=== PATIENT | male | born 1960 | race Caucasian/White ===

== ENCOUNTER 2025-02-11 06:45 | Day surgery (SDC) | payer OTHER, SELFPAY ==
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
--- NOTE | 2025-02-10 14:32 | SUR.PREOP ---
Confirm with officer Uriah, last eloquis taken was 02/05/25, pt to be NPO and to arrive at 0630.
[2025-02-10 14:33] VITALS: BMI 28.3
[2025-02-11 07:50] VITALS: BP 112/61; PULSE 64; RESP 16; TEMP 36.6; O2SAT 98; BMI 28.1
--- NOTE | 2025-02-11 08:30 | XR_ITS ---
EXAMINATION: Transrectal prostate sonography TECHNIQUE: Transrectal prostate sonography guidance for prostate biopsies by physician today Date and time: February 11, 2025, 0847 hours TECHNIQUE AND FINDINGS: Transrectal prostate sonographic images Prostate volume 34.58 cc IMPRESSION: Transrectal prostate sonographic images for prostate biopsies by physician today
[2025-02-11 09:05] VITALS: BP 66/41; PULSE 67; RESP 12; TEMP 36.3; O2SAT 100
--- NOTE | 2025-02-11 09:05 | SUR.PHASEII ---
0905: Pt. wakes to name then drifts back to sleep, pt. hypotensive MD Stanley made aware, no new orders given, remaining vitals stable, no dressing in place, no active bleed noted, report received from MD Stanley and [place] ARCHULETA.
[2025-02-11 09:10] VITALS: BP 79/42; PULSE 69; RESP 12; TEMP 36.2; O2SAT 100
[2025-02-11 09:15] VITALS: BP 74/45; PULSE 67; RESP 12; TEMP 36.3; O2SAT 100
[2025-02-11 09:20] VITALS: BP 99/58; PULSE 70; RESP 13; TEMP 36.3; O2SAT 100
[2025-02-11 09:35] VITALS: BP 107/64; PULSE 66; RESP 12; TEMP 36.3; O2SAT 100
--- NOTE | 2025-02-11 09:42 | SUR.PHASEII ---
0942: Pt. AAOx4, vitals stable, breathing unlabored, no complaint of pain or nausea, no dressing in place, pt. able to void hematuria, no visible clots noted, pt. tolerated sips of juice well, gave discharge instructions to the pt. and [place] officers, pt. verbalized understanding and had no further quesitons. Pt. left with all personal belongings.
--- NOTE | 2025-02-11 16:00 | ESOP_ITS ---
RE: HAILE MCKEON : 1960 DATE OF OPERATION: 02/11/2025 PREOPERATIVE DIAGNOSES: Prostatism, prostatic obstruction, elevated PSA of 6.7. Patient on hemodialysis for end stage renal failure. Patient is from substance abuse treatment facility assisted. POSTOPERATIVE DIAGNOSES: Prostatism, prostatic obstruction, elevated PSA of 6.7. Patient on hemodialysis for end stage renal failure. Patient is from substance abuse treatment facility assisted. PROCEDURES PERFORMED: Cystoscopy, urethral dilatation for urethral stricture, transrectal prostatic ultrasound with ultrasound guided prostatic needle biopsy. ANESTHESIA: Monitored anesthesia by Marshall Stanley MD INDICATION: Patient is 65-year-old gentleman from [facility] that [facility]. He was referred to me with a history of elevated PSA. He has a history of end stage renal disease and he is on hemodialysis for about 10 years. He is urinating a small amount. He is now scheduled to have cystoscopy and transrectal prostatic ultrasound with ultrasound guided prostatic needle biopsy. Clinical examination revealed on rectal exam he has a moderate size prostate without any hard nodules. DESCRIPTION OF PROCEDURE: After the patient was brought to the operating table under adequate monitored anesthesia by Dr. Stanley, he was placed in dorsal lithotomy position. Parts were prepped and draped in the usual fashion. Cystoscopy was then carried out which revealed adequate urethral meatus, normal-appearing urethra. There was a tight stricture in the bulbar urethra which was dilated. The prostatic urethra was then visualized which revealed moderate size prostate with some obstruction. Scope was then introduced into the bladder. Inspection of the bladder revealed residual urine to be 1 ounce, yellow and clear, and was sent for culture and sensitivity examination. There are no intravesical stones or tumors. Urethral orifices are found to be normal in position. There was some trabeculation of the urinary bladder with small bladder diverticuli. Scope was withdrawn. Urethra was dilated. Patient was then turned in left lateral position. Transrectal prostatic ultrasound was carried out. Biopsies were obtained from both lobes using ultrasound guidance. Prostatic volume was measured at 34.6 cubic centimeter. Patient tolerated the entire procedure well and left the room in good condition. Thank you very much for your kind referral. cc: [facility] DT: 09:24:12 TT: 15:59:00 Ref: [id number] - TID: [id number]
== END 2025-02-11 09:42 ==
PROVIDERS: Referring Provider Surgery; Visit Provider Surgery
PROC: (CPT 55700; principal; 2025-02-11 08:30)
PROC: 0TJB8ZZ Inspection of Bladder, Via Natural or Artificial Opening Endoscopic (ICD-10-PCS; CPT 52000; 2025-02-11 08:30)
DX: N40.1 Benign prostatic hyperplasia with lower urinary tract symptoms (principal); N13.8 Other obstructive and reflux uropathy; R35.1 Nocturia; Z99.2 Dependence on renal dialysis; I12.0 Hypertensive chronic kidney disease with stage 5 chronic kidney disease or end stage renal disease; N18.6 End stage renal disease; Z79.01 Long term (current) use of anticoagulants; N35.812 Other bulbous urethral stricture, male; N32.89 Other specified disorders of bladder
CPT/HCPCS: 52281; 55700; 76942; 87086; A4217; A4649; J0694; J2250; J2704; J3010